=== PATIENT | male | born 2000 | race African-American/Black ===

== ENCOUNTER 2021-02-25 16:39 | Emergency (ER) | payer BC ==
[~2021-02-25] VITALS: Ht 180.3 cm; Wt 78.9 kg
[2021-02-25] MEDS ORDERED: BIKTARVY 50-201 EACH PO (17:13)
[2021-02-25] MEDS ORDERED: EFFEXOR XR150 MG PO (17:14)
[2021-02-25 18:54] LABS: ABSOLUTE NEUTROPHILS 2.3 thou/uL (1.4-8.2); BASOPHILS 0.4 % (0.0-2.0); EOSINOPHILS 1.2 % (0.0-3.0); HEMATOCRIT 42.6 % (42.0-52.0); HEMOGLOBIN 14.5 gm/dL (14.0-18.0); MCH 31.5 pg (26.0-34.0); MCHC 34.1 g/dL (28.0-37.0); MCV 92.4 fL (80.0-100.0); MONOCYTES 14.1 % (1.0-8.0); PLATELET COUNT 231 thou/uL (150-400); POLYS 47.3 % (36.0-66.0); RBC 4.61 mil/uL (4.50-6.00); RDW 12.5 % (10.5-14.5); WBC 4.9 thou/uL (4.0-11.0)
[2021-02-25 19:03] LABS: CREATININE 1.4 mg/dL (0.7-1.3); POTASSIUM 3.4 mmol/L (3.5-5.1)
[2021-02-25 19:20] LABS: ALBUMIN 3.9 g/dL (3.4-5.0); TOTAL BILIRUBIN 0.3 mg/dL (0.2-1.0); TOTAL PROTEIN 7.6 g/dL (6.4-8.2)
[2021-02-25] MEDS ORDERED: ANUSOL-HC30 GM TOP (19:39)
[2021-02-25] MEDS ORDERED: HYDROCODON-ACE1 EAC7 PO (19:39)
[2021-02-25] MEDS ORDERED: AUGMENTIN 875-1 EACH PO (19:39)
[2021-02-25 19:51] VITALS: BP 146/96
== END 2021-02-25 20:01 | disposition home or self-care (01) ==
LOC: ER 16:39
PROVIDERS: Nurse Practitioner
DX: K62.89 Other specified diseases of anus and rectum (principal); Z79.899 Other long term (current) drug therapy